=== PATIENT | female | born 1970 | race Caucasian/White ===

== ENCOUNTER 2018-05-23 10:30 | Day surgery (SDC) | payer OTHER ==
[~2018-05-23 10:30] MED LIST: LIDOCAINE 2% (SDV) 5 ML INJ
[2018-05-23] MEDS: LACTATED RINGER'S 1,000 ML IV (11:40)
[2018-05-23] MEDS ORDERED: DEXAMETHASONE 4 MG/ML 1 ML INJ (11:46)
[2018-05-23] MEDS ORDERED: LIDOCAINE 1% (MPF) 30 ML INJ (11:46)
[2018-05-23] MEDS ORDERED: BUPIVACAINE 0.5% (SDV) 30 ML INJ (11:46)
[2018-05-23] MEDS ORDERED: POVIDONE IODINE 10% 28.4 GM OINT (11:47)
[2018-05-23] MEDS: BUPIVACAINE 0.5% (MPF) 30 ML INJ INJ (12:00)
[2018-05-23] MEDS: DEXAMETHASONE 4 MG/ML 1 ML INJ INJ (12:00)
[2018-05-23] MEDS ORDERED: FENTAnyl 50 MCG/ML VIAL (12:23)
[2018-05-23] MEDS ORDERED: FAMOTIDINE 20 MG INJ (12:23)
[2018-05-23] MEDS ORDERED: MIDAZOLAM 1 MG/ML 2 ML INJ (12:23)
[2018-05-23] MEDS ORDERED: PROPOFOL 40 ML (12:23)
[2018-05-23] MEDS ORDERED: ONDANSETRON 4 MG INJ (12:23)
[2018-05-23] MEDS ORDERED: CEFAZOLIN 1 GM INJ (12:40)
[2018-05-23] MEDS ORDERED: METOCLOPRAMIDE 10 MG INJ (12:51)
[2018-05-23] MEDS ORDERED: morphine (1 MG/ML) 10ML SYRINGE IV ×2 (13:30)
[2018-05-23] MEDS ORDERED: ONDANSETRON 4 MG INJ IV (13:30)
[2018-05-23] MEDS ORDERED: FENTAnyl 50 MCG/ML VIAL IV ×2 (13:30)
[2018-05-23] MEDS ORDERED: MEPERIDINE 25 MG INJ IV (13:30)
[2018-05-23] MEDS ORDERED: OXYCODONE/ACETAMINOPHEN (5/325) TAB PO ×2 (13:30)
[2018-05-23] MEDS ORDERED: HYDROmorphONE 1 MG/5 ML IV SYRINGE IV ×2 (13:30)
== END 2018-05-23 15:34 | disposition home or self-care (01) ==
LOC: SDS 10:30
DX: M20.11 Hallux valgus (acquired), right foot (principal); M21.611 Bunion of right foot
CPT/HCPCS: 28298; 84703; 88304; 88311